=== PATIENT | male | born 1945 | race Caucasian/White ===

== ENCOUNTER 2017-03-18 05:42 | Emergency (ER) | payer MEDICARE, OTHER ==
[2017-03-18 05:51] VITALS: BP 187/90
--- NOTE | 2017-03-18 06:01 | ED Physician Documentation ---
PD HPI UPPER EXT INJURY - Stated complaint Stated Complaint: R INDEX FINGER LAC - Chief complaint Chief Complaint: Laceration - History obtained from History obtained from: Patient - History of Present Illness Location: Right, Finger Type of injury: Blunt / blow Where injury occurred: Home Timing - onset: How many minutes ago (30) Timing - details: Abrupt onset Worsened by: Moving, Palpating Contributing factors: No: Anticoagulated, Prior ortho surgery Similar symptoms before: Has not had sx before Recently seen: Not recently seen - Additonal information Additional information: patient is a 71 year old male with no significant past medical history who is presenting to the emergency department for a finger laceration. patient states that he was pushing a heavy maryse and he pinched his finger into a shelf, cutting it open. Review of Systems Constitutional: denies: Fever, Chills Eyes: reports: Reviewed and negative Ears: reports: Reviewed and negative Nose: reports: Reviewed and negative Throat: reports: Reviewed and negative Cardiac: reports: Reviewed and negative Respiratory: reports: Reviewed and negative GI: denies: Nausea, Vomiting : reports: Reviewed and negative Skin: reports: Laceration (s) Musculoskeletal: reports: Extremity pain Neurologic: denies: Generalized weakness, Focal weakness, Numbness Immunocompromised: denies: Immunocompromised PD PAST MEDICAL HISTORY - Past Medical History Cardiovascular: Hypertension, High cholesterol - Past Surgical History Past Surgical History: Yes - Present Medications Home Medications: Ambulatory Orders Medication Instructions Recorded Confirmed Hydrochlorothiazide 12.5 mg PO DAILY 08/11/13 02/09/15 Sildenafil Citrate [Viagra] 25 mg PO ONCE 08/11/13 02/09/15 Simvastatin [Zocor] 10 mg PO DAILY 08/11/13 02/09/15 Telmisartan [Micardis] 20 mg PO DAILY 08/11/13 02/09/15 Aspirin [Aspir 81] 81 mg PO DAILY 02/09/15 02/09/15 oxyCODONE/ACET 5/325 [Percocet 5 1 tab PO QID 02/09/15 02/09/15 mg/325 mg] - Allergies Allergies/Adverse Reactions: Allergies Allergy/AdvReac Type Severity Reaction Status Date / Time No Known Drug Allergies Allergy Verified 03/18/17 05:46 - Social History Does the pt smoke?: No Smoking Status: Never smoker Does the pt drink ETOH?: Yes Does the pt have substance abuse?: No - Immunizations Immunizations are current?: Yes PD ED PE NORMAL - Vitals Vital signs reviewed: Yes - General General: Alert and oriented X 3, No acute distress - HEENT HEENT: Atraumatic, PERRL - Neck Neck: Supple, no meningeal sign - Cardiac Cardiac: RRR - Respiratory Respiratory: No respiratory distress - Abdomen Abdomen: Non distended - Derm Derm: Normal color - Neuro Neuro: Alert and oriented X 3, No motor deficit, No sensory deficit, Normal speech - Psych Psych: Normal mood PD ED PE EXPANDED - Extremities Extremities: Right finger(s) (0.5 punctate laceration of right index finger) Results - Vitals Vitals: Vital Signs - 24 hr 03/18/17 05:46 Temperature 36.0 C L Heart Rate 78 Respiratory 16 Rate Blood Pressure 187/90 H O2 Saturation 98 Oxygen O2 Source Room air Procedures - Laceration (location) right index finger Length in cm: 0.5 Wound type: Stellate Neurovascular status: Sensory intact, Motor intact, Vascular intact Tendon involvement: Tendon intact Skin layer closure: Steri strips Other: Patient tolerated well, No complications, Neurovascular intact, Tetanus UTD Complexity: Simple PD MEDICAL DECISION MAKING - ED course Complexity details: reviewed old records, re-evaluated patient, considered differential, d/w patient ED course: patient was seen and examined at bedside. patient's wound was washed with soap and water and wound was closed with steristrips. patient tolerated it well and was stable for discharge with outpatient follow up. Departure - Departure Disposition: 01 Home, Self Care Clinical Impression: Laceration Condition: Good Instructions: ED Laceration Hand Follow-Up: Geoff Wray DO [Primary Care Provider] - As Needed Comments: Your symptoms today are being caused by a laceration. it is important to keep it clean and dry. The steristrips should fall off on their own over the next week. If one falls off in the next few days you can replace it. you should monitor for signs of infection. You can take motrin or tylenol as needed for pain. You should follow up with your doctor if your symptoms persist. You may return to the emergency department at any time for new, worsening or uncontrollable symptoms.
== END 2017-03-18 06:05 | disposition home or self-care (01) ==
LOC: ED 05:42
DX: S61.210A Laceration without foreign body of right index finger without damage to nail, initial encounter (principal); W23.1XXA Caught, crushed, jammed, or pinched between stationary objects, initial encounter; Y93.89 Activity, other specified; Y92.019 Unspecified place in single-family (private) house as the place of occurrence of the external cause; I10 Essential (primary) hypertension
CPT/HCPCS: 12001; 99283

== ENCOUNTER 2017-04-05 10:16 | Outpatient (CLI) | payer MEDICARE, OTHER ==
[2017-04-05] MEDS ORDERED: GADOBUTROL 7.5 MMOL/7.5 ML VIAL ONE (10:32)
[2017-04-05] MEDS ORDERED: GADOBUTROL 7.5 MMOL/7.5 ML VIAL IVP ONE (12:32)
--- NOTE | 2017-04-05 16:52 | MRI Report ---
EXAM: MR ABDOMEN WITH AND WITHOUT CONTRAST (MR PANCREAS AND MRCP) EXAM DATE: 04/05/2017 12:32 PM. CLINICAL HISTORY: 16 mm hypoechoic focus in the pancreatic tail. COMPARISON: Abdominal CT from [facility] performed 03/30/2017. TECHNIQUE: Multiplanar breath-hold T1, T2, and DWI sequences obtained through the pancreas and abdome n on an MR scanner. Dedicated 2D and 3D MRCP sequences obtained through the biliary and pancreatic du cts. Images obtained before and after administration of 7.5 mL Gadavist intravenous contrast. Multiph ase postcontrast sequences obtained through the pancreas. Significant patient motion artifacts. FINDINGS: Lung Bases: The lung bases are clear. Liver: Scattered liver cysts. 2.5 x 2 cm left liver lobe cyst with thin septations versus cluster of cysts on series 701 image 21. 1.3 cm portosystemic shunt within inferior aspect of segment 4B, anterior to gallbladder. No suspicious liver mass. CBD: The CBD appears normal and measures 7 mm in diameter. Gallbladder: The gallbladder is partially distended and appears normal with no wall thickening or sto ne. Pancreas: Normal 2 mm main pancreatic duct. Within the pancreatic tail is a 1.5 cm simple-appearing cystic lesion. Communication with main pancreatic duct cannot be definitively demonstrated nor exclud ed. No additional pancreatic lesions. No peripancreatic edema. Spleen: The spleen appears normal. Kidneys and Adrenals: Right parapelvic renal cysts. Tiny bilateral renal cysts. No suspicious mass. T he adrenals appear normal. Bowel: The small bowel and colon appear normal with no inflammation or obstruction. Retroperitoneum: The retroperitoneal structures appear normal with no mass or lymphadenopathy. Lumbar scoliosis. IMPRESSION: 1. A 1.5 cm simple-appearing pancreatic tail cystic lesion. Question IPMN or other lesion. Communicat ion with main pancreatic duct cannot be determined. Options to further assess include endoscopic ultr asound with FNA versus follow-up imaging with MRI. (MRI follow-up every 6 months over initial two-yea r interval with subsequent less frequent exams to establish 10-year stability. Please see reference suzy spaulding.) 2. Scattered benign liver cysts. 3. 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 4. No suspicious liver mass evident. Olamide et al, "Management of Incidental Pancreatic Cysts: A White Paper of the ACR Incidental Findi ngs Committee," JACR 2017; 14: 911-921. [facility] Referring Provider Line: [phone] SITE ID: [id number]
== END 2017-04-05 10:17 | disposition home or self-care (01) ==
LOC: DI 10:16
PROVIDERS: ATTEND Internal Medicine
DX: K86.2 Cyst of pancreas (principal); K76.89 Other specified diseases of liver
CPT/HCPCS: 74183; A9585